=== PATIENT | male | born 1990 | race Two or more races ===

== ENCOUNTER 2024-04-14 08:42 | Emergency (ER) | payer MEDICAID, OTHER ==
[~2024-04-14] VITALS: Ht 180.3 cm; Wt 89.4 kg
[2024-04-14] MEDS ORDERED: NAP500T PO (09:29)
[2024-04-14] MEDS ORDERED: CYCL-839 PO (09:29)
[2024-04-14] MEDS ORDERED: DICL1GEL59 EX (09:29)
[2024-04-14] MEDS ORDERED: ACET500T58 PO (09:29)
[2024-04-14] MEDS: methylPREDNISolone SOD SUCC 125 MG/2 ML VL IM ONE (09:39)
[2024-04-14] MEDS: KETOROLAC TROMETH 60MG/2ML VIAL IM ONE (09:39)
[2024-04-14 09:48] VITALS: BP 116/79; PULSE 67; RESP 18; TEMP 98; O2SAT 99
== END 2024-04-14 09:33 | disposition home or self-care (01) ==
LOC: ER 08:42
DX: S33.5XXA Sprain of ligaments of lumbar spine, initial encounter (principal); X58.XXXA Exposure to other specified factors, initial encounter; Y93.89 Activity, other specified; Y92.89 Other specified places as the place of occurrence of the external cause; Y99.8 Other external cause status
CPT/HCPCS: 96372; 99284; J1885; J2919